=== PATIENT | female | born 1995 | race Caucasian/White ===

== ENCOUNTER 2021-08-16 12:44 | Emergency (ER) | payer MEDICAID ==
[~2021-08-16] VITALS: Ht 160 cm; Wt 80.7 kg
[2021-08-16 13:20] VITALS: BP 112/73
--- NOTE | 2021-08-16 13:32 | NUR ---
Patient ambulated to bed 12 with steady/even gait.
--- NOTE | 2021-08-16 13:45 | NUR ---
26 y/o F BIB self from OB appointment for referral of abdominal pain x 1 day. Patient reports seen at [facility] and states testing positive for COVID today; reports symptoms yesterday that mostly resolves; states symptoms of "itchy throat and cough." Pt at this time states two episodes of low abdominal pain yesterday; denies abd pain at this time. Reports nausea this morning that is normal from . Denies fever, chills, headache, diarrhea, constipation, chest pain, dysuria, vaginal bleeding, pain. Pt states concern from decreased movement; states last time felt was 5 days ago; reports prior to that 1-2 times per week. Abd soft/non-tender to palpation. Pt placed into a gown and playground monitor. Bed locked in lowest position, side rails x 2. UA collected. A0. PMH/Sx/Meds: calcium supplements, prenatals NKDA
--- NOTE | 2021-08-16 14:03 | NUR ---
Dr. Cheung is evaluating pt at bedside
--- NOTE | 2021-08-16 14:17 | NUR ---
Blood sample and UA handed to CPT Anayeli at ER bedside
--- NOTE | 2021-08-16 14:20 | NUR ---
US tech at bedside
[2021-08-16 14:55] LABS: BASOPHILS % (AUTO) 0.2 % (0.0-2.0); EOSINOPHILS % (AUTO) 0.2 % (0.0-4.0); HEMATOCRIT 36.5 % (36-48); HEMOGLOBIN 12.3 g/dL (12.0-16.0); LYMPHOCYTES # (AUTO) 1.2 K/uL (2.5-16.5); LYMPHOCYTES % (AUTO) 13.9 % (20.5-51.1); MEAN CORPUSCULAR HEMOGLOBIN 30 pg (27-31); MEAN CORPUSCULAR HGB CONC 34 g/dL (33-37); MEAN CORPUSCULAR VOLUME 89.3 fL (80-94); MONOCYTES # (AUTO) 0.7 K/uL (0.8-1.0); MONOCYTES % (AUTO) 8.4 % (1.7-9.3); NEUTROPHILS # (AUTO) 6.4 K/uL (1.8-7.7); NEUTROPHILS % (AUTO) 77.3 % (42.2-75.2); PLATELET COUNT (AUTO) 250 K/uL (140-450); RED BLOOD CELL COUNT(AUTO) 4.09 MIL/uL (4.20-5.40); RED CELL DISTRIBUTION WIDTH 14.3 % (11.6-13.7); WHITE BLOOD COUNT (AUTO) 8.3 K/uL (4.8-10.8)
[2021-08-16 15:00] LABS: APPEARANCE,URINE CLEAR (CLEAR); BILIRUBIN,URINE NEGATIVE (NEGATIVE); BLOOD, URINE NEGATIVE (NEGATIVE); COLOR,URINE YELLOW (YELLOW); LEUKOCYTE ESTERASE ,URINE NEGATIVE (NEGATIVE); NITRITE, URINE NEGATIVE (NEGATIVE); UGLUCOSE NEGATIVE (NEGATIVE)
[2021-08-16 15:27] LABS: ALBUMIN 3.2 g/dL (3.4-5.0); ANION GAP 12.7 (8-16); CARBON DIOXIDE 23.6 mmol/L (21-32); CREATININE 0.5 mg/dL (0.6-1.3); POTASSIUM 3.3 mmol/L (3.5-5.1); TOTAL BILIRUBIN 0.3 mg/dL (0.0-1.0)
[2021-08-16 18:06] VITALS: BP 114/67
--- NOTE | 2021-08-16 18:06 | NUR ---
Patient discharged with v/s stable. Written and verbal after care instructions given and explained. Patient alert, oriented and verbalized understanding of instructions. Ambulatory with steady gait. All questions addressed prior to discharge. ID band removed. Patient advised to follow up with PMD. Opportunity to ask questions provided and answered.
== END 2021-08-16 18:06 | disposition home or self-care (01) ==
LOC: MED 12:44
DX: O20.0 Threatened abortion (principal); O98.512 Other viral diseases complicating pregnancy, second trimester; U07.1 COVID-19; Z3A.17 17 weeks gestation of pregnancy; Z90.49 Acquired absence of other specified parts of digestive tract
CPT/HCPCS: 36415; 76805; 80053; 81003; 81025; 84702; 85025; 99284; Q0092

== ENCOUNTER 2022-01-02 11:47 | Inpatient (IN) | payer MEDICAID ==
[~2022-01-02] VITALS: Ht 162.6 cm; Wt 85.7 kg
[2022-01-02] MEDS ORDERED: CARBOPROST 250 MCG/ML AMP IM PRN (12:30)
[2022-01-02] MEDS ORDERED: METHYLERGONOVINE 0.2 MG/ML AMP IM PRN (12:30)
[2022-01-02 13:00] VITALS: BP 111/77
[2022-01-02] MEDS ORDERED: AMPICILLIN 2,000 MG in NACL 0.9% MINI-BAG PLUS 100 ML IV SCH (13:09)
[2022-01-02 13:35] LABS: BASOPHILS % (AUTO) 0.5 % (0.0-2.0); EOSINOPHILS # (AUTO) 0.1 K/uL (0-0.4); EOSINOPHILS % (AUTO) 1.2 % (0.0-4.0); HEMATOCRIT 40.4 % (36-48); HEMOGLOBIN 13.4 g/dL (12.0-16.0); LYMPHOCYTES # (AUTO) 1.7 K/uL (2.5-16.5); LYMPHOCYTES % (AUTO) 22.7 % (20.5-51.1); MEAN CORPUSCULAR HEMOGLOBIN 29 pg (27-31); MEAN CORPUSCULAR HGB CONC 33 g/dL (33-37); MEAN CORPUSCULAR VOLUME 88.3 fL (80-94); MONOCYTES # (AUTO) 0.5 K/uL (0.8-1.0); MONOCYTES % (AUTO) 7.1 % (1.7-9.3); NEUTROPHILS # (AUTO) 5.2 K/uL (1.8-7.7); NEUTROPHILS % (AUTO) 68.5 % (42.2-75.2); PLATELET COUNT (AUTO) 250 K/uL (140-450); RED BLOOD CELL COUNT(AUTO) 4.58 MIL/uL (4.20-5.40); RED CELL DISTRIBUTION WIDTH 15.5 % (11.6-13.7); WHITE BLOOD COUNT (AUTO) 7.7 K/uL (4.8-10.8)
[2022-01-02 13:47] LABS: APPEARANCE,URINE CLEAR (CLEAR); BILIRUBIN,URINE NEGATIVE (NEGATIVE); BLOOD, URINE NEGATIVE (NEGATIVE); COLOR,URINE YELLOW (YELLOW); LEUKOCYTE ESTERASE ,URINE NEGATIVE (NEGATIVE); NITRITE, URINE NEGATIVE (NEGATIVE); UGLUCOSE NEGATIVE (NEGATIVE)
[2022-01-02 14:07] LABS: ALBUMIN 2.7 g/dL (3.4-5.0); ANION GAP 11.6 (8-16); CREATININE 0.6 mg/dL (0.6-1.3); POTASSIUM 3.6 mmol/L (3.5-5.1); TOTAL BILIRUBIN 0.3 mg/dL (0.0-1.0); URIC ACID 5.4 mg/dL (2.6-7.2)
[2022-01-02 14:08] LABS: PROTHROMBIN TIME 8.6 secs (10.8-13.4)
[2022-01-02] MEDS ORDERED: PNV91TAB8 PO (14:58)
[2022-01-02] MEDS ORDERED: FAMO-90 PO (14:58)
[2022-01-02] MEDS ORDERED: FERR-212 PO (14:58)
[2022-01-02] MEDS ORDERED: AMPICILLIN 1,000 MG in NACL 0.9% MINI-BAG PLUS 50 ML IV SCH (16:00)
[2022-01-02] MEDS ORDERED: BLOOD GLUCOSE MONITORING 1 DEV DEV FS SCH (16:00)
[2022-01-02] MEDS: MISOPROSTOL 25 MCG TAB VG SCH (20:05)
[2022-01-02] MEDS: LACTATED RINGERS 1,000 ML IV SCH (21:20)
[2022-01-03] MEDS: MISOPROSTOL 25 MCG TAB VG SCH ×3 (02:24→17:00)
[2022-01-03] MEDS: LACTATED RINGERS 1,000 ML IV SCH ×2 (07:32→16:55)
[2022-01-03 09:06] LABS: HEPATITIS B SURFACE ANTIGEN Negative (Negative)
--- NOTE | 2022-01-03 14:09 | NUR ---
PATIENT HAS BEEN SCREENED AND CATEGORIZED LOW NUTRITION RISK. PATIENT WILL BE SEEN WITHIN 7 DAYS OF ADMISSION. 01/09/[address]
[2022-01-04] MEDS: MISOPROSTOL 25 MCG TAB VG SCH (00:46)
[2022-01-04] MEDS ORDERED: ONDANSETRON 4 MG/2 ML VIAL IVP PRN (09:45)
[2022-01-04] MEDS ORDERED: MORPHINE SULFATE 10 MG/ML VIAL IVP PRN (09:55)
[2022-01-04 10:07] VITALS: BP 110/66
[2022-01-04] MEDS ORDERED: ROPIVACAINE 0.2%/NS PREMIX 200 ML EPI ONE (14:33)
[2022-01-04] MEDS ORDERED: fentaNYL citrate 0.05 MG/ML VIAL ONE (14:33)
[2022-01-04] MEDS: LACTATED RINGERS 1,000 ML IV SCH (14:38)
[2022-01-04] MEDS ORDERED: OXYTOCIN 20 UNITS/LR PREMIX 1,000 ML IV ONE (16:20)
[2022-01-04] MEDS ORDERED: OXYTOCIN 20 UNITS in LACTATED RINGERS 1,000 ML IV SCH (16:40)
[2022-01-04] MEDS ORDERED: AMPICILLIN 2,000 MG VIAL ONE (17:25)
[2022-01-04] MEDS ORDERED: AMPICILLIN 2,000 MG in NACL 0.9% 100 ML IV SCH (17:52)
[2022-01-04] MEDS ORDERED: AMPICILLIN 1,000 MG in NACL 0.9% MINI-BAG PLUS 50 ML IV SCH (20:30)
[2022-01-04] MEDS ORDERED: AMPICILLIN 1,000 MG VIAL ONE (21:05)
[2022-01-05] MEDS ORDERED: METHYLERGONOVINE 0.2 MG/ML AMP IM PRN (01:40)
[2022-01-05] MEDS ORDERED: OXYTOCIN 10 UNITS/ML VIAL IM PRN (01:40)
[2022-01-05] MEDS ORDERED: MEASLES, MUMPS, AND RUBELLA 1 VIAL SQVAC ONE (01:40)
[2022-01-05] MEDS ORDERED: IBUPROFEN 800 MG TAB PO PRN (01:40)
[2022-01-05] MEDS ORDERED: METHYLERGONOVINE 0.2 MG TAB PO PRN (01:40)
[2022-01-05] MEDS ORDERED: BENZOCAINE/MENTHOL 20%-0.5% 60 GM CAN TP PRN (01:40)
[2022-01-05 05:48] LABS: HEMATOCRIT 33.6 % (36-48); HEMOGLOBIN 11.2 g/dL (12.0-16.0)
[2022-01-06] MEDS ORDERED: MEASLES, MUMPS, AND RUBELLA 1 VIAL SQVAC ONE (04:50)
== END 2022-01-06 14:10 | disposition home or self-care (01) | DRG 560 ==
LOC: MLD 11:47 → OBSVTOIN 12:10 → MFCC 01-05 01:16
PROVIDERS: ADMIT Obstetrics & Gynecology; ATTEND Obstetrics & Gynecology
PROC: 10E0XZZ Delivery of Products of Conception, External Approach (ICD-10-PCS; principal; 2022-01-04)
PROC: 3E033VJ Introduction of Other Hormone into Peripheral Vein, Percutaneous Approach (ICD-10-PCS; 2022-01-04)
DX: O26.62 Liver and biliary tract disorders in childbirth (principal); Z37.0 Single live birth; K83.1 Obstruction of bile duct; E83.51 Hypocalcemia; D62 Acute posthemorrhagic anemia; O24.420 Gestational diabetes mellitus in childbirth, diet controlled; O75.89 Other specified complications of labor and delivery; O99.824 Streptococcus B carrier state complicating childbirth; Z20.822 Contact with and (suspected) exposure to COVID-19; Z3A.37 37 weeks gestation of pregnancy; O90.81 Anemia of the puerperium
CPT/HCPCS: 36415; 51702; 59200; 59409; 76819; 80053; 81003; 82948; 84550; 85018; 85025; 85610; 85730; 86592; 86762; 86886; 86900; 86901; 87340; 90707; J0290; J2270; J2405; J2590; J2795; J3010; Q0092